=== PATIENT | female | born 1975 | race Hispanic/Latino ===

== ENCOUNTER 2018-08-17 07:31 | Day surgery (SDC) | payer MEDICAID ==
[2018-08-14 09:54] VITALS: BMI 54.7
[2018-08-17] MEDS ORDERED: Propofol 10 mg/ml Inj (20 ML) ONE (08:41)
[2018-08-17] MEDS ORDERED: Lactated Ringer's 1,000 ML IV SCH (09:15)
[2018-08-17 10:27] VITALS: BP 138/91; PULSE 78; RESP 18; TEMP 98; O2SAT 96
--- NOTE | 2018-08-17 12:07 | CARD ---
APPROVED REPORT Date of service: 08/17/2018 EKG Measurement Heart [id number] VA 182P21 [id number] <Conclusion> Normal sinus rhythm Low voltage QRS Borderline ECG
== END 2018-08-17 10:23 | disposition home or self-care (01) ==
LOC: ENDO 07:31
PROVIDERS: ATTEND Internal Medicine Gastroenterology
DX: Z01.818 Encounter for other preprocedural examination (principal); E66.01 Morbid (severe) obesity due to excess calories; Z68.43 Body mass index [BMI] 50.0-59.9, adult; K21.0 Gastro-esophageal reflux disease with esophagitis; K29.50 Unspecified chronic gastritis without bleeding; E11.9 Type 2 diabetes mellitus without complications; I10 Essential (primary) hypertension; E03.9 Hypothyroidism, unspecified
CPT/HCPCS: 43239; 84703; 88305; 88312; 88342; 93005; J2001; J2704; J7040; J7120